=== PATIENT | female | born 1990 | race Caucasian/White ===

== ENCOUNTER 2016-03-27 16:01 | Emergency (ER) | payer MEDICAID ==
--- NOTE | 2016-03-27 16:33 | PD ---
HPI Chief Complaint high blood pressure Date Seen: Mar 27, 2016 Time Seen: 16:21 (Julien Cardoza MD R1) Travel History International Travel<30 Days: No Contact w/Intl Traveler<30Days: No (Julien Cardoza MD R1) History of Present Illness HPI 25 y/o at 24/4 weeks presents with high blood pressure. States she was seeing "stars" at work and they check her blood pressure, which kept increasing. Went as high as 155/107. Denies any other symptoms/complaints. Denies headaches, lightheadedness/dizziness, RUQ pain, leg pain/swelling. Denies chest pain, SOB, abdominal pain. No history of hypertension and no problems during this . Her OB is in [place]. Endorses movement. Denies VB, CTX, LOF. Para: 0 : 1 (Julien Cardoza MD R1) History Past Medical History Narrative Medical asymptomatic heart murmur (Julien Cardoza MD R1) Obstetric History Obstetric History G1 No problems with this (Julien Cardoza MD R1) Past Surgical History Surgical History: No Previous Surgery (Juilen Cardoza MD R1) Family History Family History: Negative (Julien Cardoza MD R1) Social History Alcohol Use: No Tobacco Use: No Substance Abuse: No (Julien Cardoza MD R1) Review of Systems General / Constitutional: Weight Gain, No: Fever, Weight Loss, Chills Eyes: No: Blurred Vision, Visual changes HENT: No: Headaches, Vertigo Cardiovascular: No: Irregular Rhythm, Chest Pain or Discomfort, Palpitations Respiratory: No: Cough, Short of Breath Gastrointestinal: No: Nausea, Vomiting, Diarrhea, Abdominal Pain, Constipation Genitourinary: No: Urgency, Frequency, Dysuria, Nocturia, Hematuria, Incontinence, Pelvic Pain, Vaginal Bleeding Musculoskeletal: No: Limited ROM, Weakness Skin: No Rash, No Itching, No Dryness, No Lumps Neurologic: No: Weakness, Dizziness Psychiatric: No: Anxiety, Depression Endocrine: No: Heat Intolerance, Cold Intolerance Hematologic/Lymphatic: No Easy Bruising, No Lymph Node Enlargement (Julien Cardoza MD R1) Physical Exam Narrative GENERAL: Well-nourished, well-developed patient. SKIN: Warm and dry. HEAD: Normocephalic and atraumatic. EYES: No scleral icterus. No injection or drainage. ENT: No nasal drainage noted. Mucous membranes pink. Airway patent. NECK: Supple, trachea midline. No JVD. CARDIOVASCULAR: Regular rate and rhythm without murmurs, gallops, or rubs. RESPIRATORY: Breath sounds equal bilaterally. No accessory muscle use. ABDOMEN/GI: Abdomen soft, non-tender, bowel sounds present, no rebound, no guarding Gravid to 24 weeks size Fundal Height: 24 GENITOURINARY: Uterine Contractions: none FHT's: Category: 1 Baseline: 145 Reactive: yes Variability: moderate Decels: none EXTREMITIES: No cyanosis or edema. BACK: Nontender without obvious deformity. No CVA tenderness. NEUROLOGICAL: Awake and alert. Motor and sensory grossly within normal limits. Five out of 5 muscle strength in all muscle groups. Normal speech. (Julien Cardoza MD R1) Data Data Vital Signs Reviewed: Yes Orders Vital Signs (Adult) .ON ADMISSION (03/27/16 16:28) ^ Labor Status (03/27/16 16:28) (Julien Cardoza MD R1) MDM Medical Record Reviewed: Yes Interpretation(s) 25 y/o at 24/4 presents for high blood pressure Plan - Recheck blood pressures - Monitor vitals - FHT Narrative Course / MDM Recheck BP 130s/80s. Asymptomatic Category 1 FHT Discharge home in stable condition. Return to ED if worsening symptoms, including headache, changes in vision, right upper pain, leg swelling. F/u with OB doctor (Julien Cardoza MD R1) Diagnosis Diagnosis: Primary Impression: 24 weeks gestation of Disposition: DISCHARGE HOME Condition: Stable Patient Instructions: General Instructions, Preeclampsia (ED) Additional Instructions: Patient seen and evaluated with the resident under direct supervision, I agree with the assessment and plan. Patient instructed to return to labor and delivery if increased headaches, blurry vision, visual disturbances, epigastric pain. She is also instructed to return if increased cramping, contractions, leakage of fluids, vaginal bleeding or decreased movements. Drink plenty of fluids. Monitor kick counts. Keep office appointment as scheduled. Julien Cardoza MD R1 Mar 27, 2016 16:33 Temo Love MD Mar 27, 2016 18:05
[2016-03-27 17:00] VITALS: BP 114/67; PULSE 74
== END 2016-03-27 17:50 | disposition home or self-care (01) ==
LOC: HOBED 16:07
DX: O26.92 Pregnancy related conditions, unspecified, second trimester (principal); R03.0 Elevated blood-pressure reading, without diagnosis of hypertension; Z3A.24 24 weeks gestation of pregnancy
CPT/HCPCS: 99283